=== PATIENT | male | born 1950 | race Caucasian/White ===

== ENCOUNTER 2019-01-28 11:50 | Emergency (ER) | payer MEDICARE, OTHER ==
[~2019-01-28] VITALS: Ht 170.2 cm; Wt 62.0 kg
--- NOTE | 2019-01-28 13:30 | NUR ---
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 VSS. OXYGEN SATURATION 98% PT ABLE TO SPEAK IN FULL SENTENCES AND NON STOP REGARDING REASON FOR VISIT. NADN. PT STATES "I'VE HAD A SWOLLEN TONGUE FOR TWO DAYS. I WENT TO VISIT MY FRIEND WHO HAD A CAT. I DON'T KNOW IF THAT'S IT."
[2019-01-28] MEDS ORDERED: DIPHENHYDRAMINE 50 MG/ML, 1ML ONE (13:51)
[2019-01-28] MEDS ORDERED: methylPREDNISolone SOD SUCC 125 MG/2 ML ONE (13:51)
[2019-01-28] MEDS ORDERED: EPINEPHRINE 1 MG/ML, 1ML ONE (13:51)
[2019-01-28] MEDS ORDERED: EPINEPHRINE 1 MG/ML, 1ML IM ONE (14:00)
[2019-01-28] MEDS ORDERED: methylPREDNISolone SOD SUCC 125 MG/2 ML IVPush ONE (14:00)
[2019-01-28] MEDS ORDERED: DIPHENHYDRAMINE 50 MG/ML, 1ML IVPush ONE (14:00)
--- NOTE | 2019-01-28 14:49 | NUR ---
PT RESTING IN BED, ALL MEDICATIONS ADMINISTERED AT THIS TIME. CALL LIGHT IN REACH. PT DENIES ANY FURTHER NEEDS OR CONCERNS AT THIS TIME.
--- NOTE | 2019-01-28 15:05 | NUR ---
REPORT RECEIVED FROM JAMES CARTAGENA. PLAN OF CARE DISCUSSED. PATIENT'S TONGUE APPEARS LESS OBSTRUCTIVE. PATIENT RESTING, VSS, NAD. CALL LIGHT IN REACH.
--- NOTE | 2019-01-28 16:14 | NUR ---
PATIENT'S TONGUE APPEARS LESS SWOLLEN, SPEECH MORE CLEAR. AMBULATED WITH STEADY GAIT TO RESTROOM. VSS, NAD. CALL LIGHT IN REACH.
[2019-01-28 17:09] VITALS: BP 105/48
== END 2019-01-28 17:11 | disposition home or self-care (01) ==
LOC: ED 15:17
DX: T78.3XXA Angioneurotic edema, initial encounter (principal); F17.200 Nicotine dependence, unspecified, uncomplicated
CPT/HCPCS: 96372; 96374; 96375; 99283; J0171; J1200; J2930